=== PATIENT | female | born 1965 | race Caucasian/White ===

== ENCOUNTER → 2017-08-05 | Outpatient (CLI) | payer OTHER ==
[~2017-08-05] MED LIST: ASPI325 PO; ATOR20 PO; Aspirin EC81 MG PO; CARV25 PO; FURO20 PO; LEVSOD100 PO; LISI5 PO; OMEPRAZOLE MAGN20 MG PO; RANI150 PO; SPIR25 PO
== END | disposition home or self-care (01) ==
LOC: LAB EV 14:03 → LAB SHORT 14:03
DX: L03.211 Cellulitis of face (principal)
CPT/HCPCS: 87070; 87077; 87186; 87205

== ENCOUNTER 2018-12-28 05:45 | Day surgery (SDC) | payer OTHER ==
[~2018-12-28] VITALS: Ht 160 cm; Wt 115.0 kg
--- NOTE | 2018-12-28 10:43 | NUR ---
PT UP TO THE BATHROOM /C SBA. TOLERATED WELL. -BLEEDING OR SWELLING R GROIN.
--- NOTE | 2018-12-28 10:44 | NUR ---
10CC AIR REMOVED FROM R WRIST TR BAND. -BLEEDING OR SWELLING.
--- NOTE | 2018-12-28 12:22 | NUR ---
TR BAND REMOVED FROM R WRIST. -BLEEDING OR SWELLING. PUNCTURE AREA CLEANED WITH NS. CLOTH DOT DRSG PLACED. R WRIST SPLINT REAPPLIED. IV REMOVED. PT TAKEN OUT OF THE HRT CENTER VIA W/C.
== END 2018-12-28 11:24 | disposition home or self-care (01) ==
LOC: MHTC 05:45
DX: I25.10 Atherosclerotic heart disease of native coronary artery without angina pectoris (principal); I42.0 Dilated cardiomyopathy; I27.20 Pulmonary hypertension, unspecified
CPT/HCPCS: 93005; 93010; 93460; 99152; 99153; C1769; C1894; J1644; J2250; J3010; J7030; Q9967

== ENCOUNTER → 2019-07-05 | Outpatient (CLI) | payer OTHER ==
[2019-07-07 13:10] LABS: HPV 16 Negative (Negative); HPV 18 Negative (Negative); HPV OTHER HR TYPES Negative (Negative)
== END ==
LOC: LAB 17:09 → LAB SHORT 17:09
PROVIDERS: Nurse Practitioner Family
DX: Z00.00 Encounter for general adult medical examination without abnormal findings (principal); N93.9 Abnormal uterine and vaginal bleeding, unspecified
CPT/HCPCS: 87624; G0123